=== PATIENT | male | born 1960 | race Caucasian/White ===

== ENCOUNTER 2017-07-09 01:25 | Emergency (ER) | payer SELFPAY ==
[~2017-07-09] VITALS: Ht 175.3 cm; Wt 95.5 kg
[2017-07-09 01:28] VITALS: TEMP 36.5; Ht 175.3 cm; Wt 95.5 kg
[2017-07-09] MEDS ORDERED: MoRPHine SULFATE 10 MG/ML CARP/VIAL IV STA (01:54)
[2017-07-09] MEDS ORDERED: SODIUM CHLORIDE 0.9% 1000ML 1,000 ML IV STA (01:54)
[2017-07-09] MEDS ORDERED: ONDANSETRON INJ 2 MG/ML 2 ML VIAL IV STA (01:54)
[2017-07-09 02:07] LABS: BASO % 0.2 %; BASO ABS # 0.02 K/uL (0-0.2); COMPLETE YES; EOS % 1.1 %; HEMATOCRIT 42.9 % (42-52); IG% 0.5 %; LYMPH % 19.4 %; LYMPH ABS # 2.12 K/uL (1.2-3.4); MEAN CELL VOLUME 90.9 fL (80-100); MEAN CORPUSCULAR HEMOGLOBIN 30.7 pg (25-34); MEAN CORPUSCULAR HGB CONC 33.8 g/dl (32-36); MEAN PLATELET VOLUME 10.1 fL (7.4-10.4); MONO % 7.1 %; NEUT % 71.7 %; PLATELET COUNT 227 K/uL (130-400); RED BLOOD COUNT 4.72 M/uL (4.7-6.1); WHITE BLOOD COUNT 10.93 K/uL (4.8-10.8)
[2017-07-09 02:28] LABS: BUN/CREATININE RATIO 10.8 (10-20); CREATININE 1.29 mg/dl (0.60-1.40); POTASSIUM 4.1 mmol/L (3.5-5.1)
[2017-07-09 02:30] LABS: ALB/GLOB RATIO 1.1 (0.9-2)
--- NOTE | 2017-07-09 03:34 | EMERGENCY ROOM VISIT NOTE ---
History First contact with patient: 01:38 Chief Complaint: ABDOMINAL PAIN Stated Complaint: ABDOMINAL PAIN AND VOMITING Nursing Triage Summary: Patient arrived via EMS from home. Patient reports abdominal pain starting tonight at 9pm. Patient reports vomiting and nausea. Patient currently nausea with no vomiting. Patient reports no history of abdominal surgery. Patient last ate at 4pm. History of Present Illness The patient is a 57 year old male who presents to the Emergency Room with complaints of abdominal pain and vomiting. The patient states that he ate his Thanksgiving dinner around 4 PM yesterday. Several hours after that, the patient developed nausea, vomiting and pain across his upper abdomen. He rates his discomfort a 6/10. He denies any changes in bowel movements. The patient is otherwise healthy and denies any history of similar symptoms. He denies history of abdominal surgeries. Denies urinary symptoms or fevers. Review of Systems A complete 10 point review of systems was reviewed with the patient with pertinent positives and negatives as per history of present illness. All else were negative. Social History Smoking Status: Never Smoker Current/Historical Medications Scheduled Ondasetron Odt (Zofran Odt), 4 MG SL Q6H Scheduled PRN Oxycodone Ir (Roxicodone Ir), 1-2 TAB PO Q4H PRN for Pain Physical Exam Vital Signs Date Time Temp Pulse Resp B/P (MAP) Pulse Ox O2 Delivery O2 Flow Rate FiO2 07/09/17 06:21 76 16 123/71 96 07/09/17 04:55 70 16 133/76 96 Room Air 07/09/17 03:20 70 16 130/89 96 Room Air 07/09/17 01:28 36.5 68 16 153/90 98 Room Air Physical Exam VITALS: Vitals are noted on the nurse's note and reviewed by myself. Vital signs stable. GENERAL: This is a 57-year-old male, in no acute distress, nondiaphoretic, well- developed well-nourished. HEENT: Normocephalic. PERRLA. Mucous membranes moist. Neck is supple without nuchal rigidity. HEART: Regular rate and rhythm without murmurs gallops or rubs. LUNGS: Clear to auscultation bilaterally without wheezes, rales or rhonchi. No retractions or accessory muscle use. ABDOMEN: Positive bowel sounds x 4. Soft, tenderness in the epigastric region and right upper quadrant. No guarding or rebound tenderness. NEURO: Patient was alert and oriented to person place and time. Medical Decision & Procedures ER Provider Diagnostic Interpretation: US RUQ: Hepatomegaly. Hepatic steatosis with sparing adjacent gallbladder. Gallbladder sludge and stones without distention. No gallbladder wall thickening and no pericholecystic fluid. The straightener was unable to assess as well as a sonographic Kent's sign due to recent morphine administration. Therefore, please correlate clinically to exclude acute gallbladder disease. Common bile duct is top normal measuring 6.8 mm. No definite choledocholithiasis. No hydronephrosis. Radiologist: Marquise Torres MD Laboratory Results 07/09/17 01:40 Red Blood Count 4.72, Mean Corpuscular Volume 90.9, Mean Corpuscular Hemoglobin 30.7, Mean Corpuscular Hemoglobin Concent 33.8, Mean Platelet Volume 10.1, Neutrophils (%) (Auto) 71.7, Lymphocytes (%) (Auto) 19.4, Monocytes (%) (Auto) 7.1, Eosinophils (%) (Auto) 1.1, Basophils (%) (Auto) 0.2, Neutrophils # (Auto) 7.84, Lymphocytes # (Auto) 2.12, Monocytes # (Auto) 0.78, Eosinophils # (Auto) 0.12, Basophils # (Auto) 0.02 07/09/17 01:40 Test 07/09/17 01:40 White Blood Count 10.93 K/uL (4.8-10.8) Red Blood Count 4.72 M/uL (4.7-6.1) Hemoglobin 14.5 g/dL (14.0-18.0) Hematocrit 42.9 % (42-52) Mean Corpuscular Volume 90.9 fL (80-100) Mean Corpuscular Hemoglobin 30.7 pg (25-34) Mean Corpuscular Hemoglobin Concent 33.8 g/dl (32-36) Platelet Count 227 K/uL (130-400) Mean Platelet Volume 10.1 fL (7.4-10.4) Neutrophils (%) (Auto) 71.7 % Lymphocytes (%) (Auto) 19.4 % Monocytes (%) (Auto) 7.1 % Eosinophils (%) (Auto) 1.1 % Basophils (%) (Auto) 0.2 % Neutrophils # (Auto) 7.84 K/uL (1.4-6.5) Lymphocytes # (Auto) 2.12 K/uL (1.2-3.4) Monocytes # (Auto) 0.78 K/uL (0.11-0.59) Eosinophils # (Auto) 0.12 K/uL (0-0.5) Basophils # (Auto) 0.02 K/uL (0-0.2) RDW Standard Deviation 44.5 fL (36.4-46.3) RDW Coefficient of Variation 13.4 % (11.5-14.5) Immature Granulocyte % (Auto) 0.5 % Immature Granulocyte # (Auto) 0.05 K/uL (0.00-0.02) Anion Gap 8.0 mmol/L (3-11) Est Creatinine Clear Calc Drug Dose 71.2 ml/min Estimated GFR () 70.4 Estimated GFR (Non- 60.7 BUN/Creatinine Ratio 10.8 (10-20) Calcium Level 9.0 mg/dl (8.5-10.1) Total Bilirubin 0.8 mg/dl (0.2-1) Aspartate Amino Transf (AST/SGOT) 20 U/L (15-37) Alanine Aminotransferase (ALT/SGPT) 47 U/L (12-78) Alkaline Phosphatase 64 U/L (45-117) Total Protein 7.8 gm/dl (6.4-8.2) Albumin 4.1 gm/dl (3.4-5.0) Globulin 3.7 gm/dl (2.5-4.0) Albumin/Globulin Ratio 1.1 (0.9-2) Lipase 236 U/L (73-393) Medications Administered Medications (Trade) Dose Ordered Sig/Daphnie Route Start Time Stop Time Status Last Admin Dose Admin Ondansetron HCl (Zofran Inj) 4 mg NOW STAT IV 07/09/17 01:54 07/09/17 01:56 DC 07/09/17 02:04 4 MG Sodium Chloride 1,000 ml @ 999 mls/hr Q1H1M STAT IV 07/09/17 01:54 07/09/17 02:54 DC 07/09/17 02:03 999 MLS/HR Morphine Sulfate (MoRPHine SULFATE INJ) 6 mg NOW STAT IV 07/09/17 01:54 07/09/17 01:56 DC 07/09/17 02:06 6 MG ED Course The patient was evaluated as above. Labs were drawn and IV access was obtained. Patient was medicated with 6 mg morphine and 4 mg Zofran. Patient was reevaluated and stated he is feeling much better Discharge instructions were reviewed with the patient. The patient verbalized understanding of my assessment and treatment plan and was discharged home in good condition. Medical Decision Differential diagnosis includes cholecystitis, choledocholithiasis, pancreatitis , gastroenteritis, bowel obstruction, among others. The patient is a 57-year-old male who presents today complaining of up her abdominal pain and vomiting. Exam revealed tenderness which seemed to be localized to the right upper quadrant. For this reason, ultrasound was performed. This was read by radiology and did show some stones and sludge, but no wall thickening or pericholecystic fluid. Patient has only a minimal elevation of his white blood cell count. LFTs are within normal limits. I do not feel this represents an acute cholecystitis. The patient had significant improvement of symptoms on reevaluation. I do feel it is reasonable for him to follow up with a surgeon as an outpatient and return here as needed. He was given prescriptions for pain and nausea medications. Return instructions were discussed. The patient's case was reviewed with Dr. Gleason, ED attending physician, who agreed with my assessment and treatment plan. Based on the patient's presentation and work up, I feel the patient is stable for outpatient treatment. The patient was educated to return to the emergency department for any worsening of their current condition or new/concerning symptoms. He will follow up with his PCP and general surgery. [place] Drug Monitoring Program Search Results: patient reviewed within database, no issues identified Medication Reconcilliation Current Medication List: was personally reviewed by me Blood Pressure Screening Patient's blood pressure: Normal blood pressure Impression Primary Impression: Right upper quadrant abdominal pain Departure Information Dispostion Home / Self-Care Condition GOOD Prescriptions Ondasetron Odt (ZOFRAN ODT) 4 Mg Tab 4 MG SL Q6H for Nausea, #10 TAB Prov: Lisa Farrell PA-C 07/09/17 Oxycodone Ir (Roxicodone Ir) 5 Mg Tab 1-2 TAB PO Q4H Y for Pain, #15 TAB For Initial Treatment Prov: Lisa Farrell PA-C 07/09/17 Referrals No Doctor, Assigned (PCP) Kristian Muñiz M.D. Patient Instructions [facility] Additional Instructions You have been treated in the Emergency Department your Abdominal Pain. Laboratory results and imaging studies have ruled out any emergent causes for your abdominal pain which would warrant admission or surgery. You have been prescribed Oxy IR to be used for pain control. This is a narcotic medication. You cannot drive or consume alcohol while on this medicine. This medicine should only be used for pain that cannot be controlled with over-the- counter pain medicines. You have been prescribed Zofran to be used for any nausea or vomiting. Take as prescribed. For pain control, you can use the following [id number] medicines (if >12 yo): - Regular strength (325mg/tab) Tylenol (acetaminophen) 2 tabs every 4-6 hours as needed. Do not exceed 12 tablets in a 24 hour period. Avoid taking more than 4 grams (4000 mg) of Tylenol per day. This includes any other sources of acetaminophen you may take on a regular basis. - Regular strength (200 mg/tab) Advil (ibuprofen) 1-2 tabs every 4-6 hours as needed. Do not exceed a dose of 3200 mg per day. Drink plenty of water and stay well hydrated. As with any trip to the Emergency Department, you should follow-up with your Primary Care Provider from today's visit. You have been given the information for a general surgeon. Please call them to schedule a follow-up from today's visit. Avoid fatty foods. Return to the emergency department if your symptoms persist despite treatment plan outlined above or if the following symptoms occur: Worsening pain, vomiting , fevers, or any other new/concerning symptoms.
[2017-07-09] MEDS ORDERED: ONDANSETRON HOME PACK 4MG OD TAB PO ONE (04:15)
[2017-07-09] MEDS ORDERED: OXYCODONE IR HOME PACK PO ONE (04:15)
[2017-07-09] MEDS ORDERED: ONDA4TAB10 SL (05:19)
[2017-07-09] MEDS ORDERED: OXYC1TAB3 PO (05:19)
[2017-07-09 06:21] VITALS: BP 123/71; PULSE 76; O2SAT 96
--- NOTE | 2017-07-09 07:05 | DIAGNOSTIC IMAGING REPORT ---
ABDOMINAL ULTRASOUND, RIGHT UPPER QUADRANT HISTORY: Right upper quadrant pain and vomiting. COMPARISON: None. FINDINGS: Liver is echogenic and mildly enlarged. No hepatic lesions are identified. Common bile duct is at the upper limits of normal, measuring 6.8 mm in diameter. No common bile duct calculi were identified. Numerous gallstones are noted within the gallbladder. There is no gallbladder wall thickening. There is no pericholecystic fluid. Sonographic Kent sign could not be assessed for this patient given recent morphine administration. The pancreatic body is normal. Head and tail are obscured. There is no right hydronephrosis. IMPRESSION: 1. Cholelithiasis. No gallbladder wall thickening. If clinically indicated, a nuclear medicine hepatobiliary scan could be obtained to evaluate for acute cholecystitis. 2. Fatty liver. 3. Top normal caliber common bile duct. 4. Partially obscured pancreas. Electronically signed by: Bharath Wolf M.D. 07/09/2017 7:04 AM Dictated Date/Time: 07/09/2017 7:01 AM
== END 2017-07-09 06:22 | disposition home or self-care (01) ==
LOC: EDBD 01:25 → C.EDB 01:27
DX: R10.11 Right upper quadrant pain (principal)